=== PATIENT | female | born 1935 | race Caucasian/White ===

== ENCOUNTER 2018-03-07 12:39 | Inpatient (IN) | payer MEDICARE, BC ==
[2018-03-07] MEDS: Sodium Chloride 0.9% 1,000 ML IV SCH (15:37)
[2018-03-07] MEDS: Acetaminophen 325 MG Tab PO PRN (15:37)
[2018-03-07] MEDS: Enoxaparin 30 MG/0.3 ML Syringe SUBCUT SCH (15:39)
[2018-03-07] MEDS: Nystatin Crm 30 GM Tube TOP SCH ×2 (17:13→20:21)
[2018-03-07] MEDS: Clindamycin Phosphate in D5W 300 MG in Premix Bag 1 BAG IV SCH ×4 (17:14→21:48)
[2018-03-07] MEDS: Fluconazole 100 MG Tab PO SCH (17:16)
[2018-03-07] MEDS: Acetaminophen/HYDROcodone 325-5 MG Tab PO PRN ×2 (17:21→21:49)
[2018-03-07] MEDS: Simvastatin 40 MG Tab PO SCH ×2 (20:21→20:24)
[2018-03-07] MEDS: Latanoprost 0.005% Ophth Soln 2.5 ML Bottle EYEBOTH SCH (20:30)
[2018-03-08] MEDS: Sodium Chloride 0.9% 1,000 ML IV SCH ×2 (00:05→09:01)
[2018-03-08] MEDS: Clindamycin Phosphate in D5W 300 MG in Premix Bag 1 BAG IV SCH ×8 (04:40→22:07)
[2018-03-08] MEDS: Fluconazole 100 MG Tab PO SCH (08:07)
[2018-03-08] MEDS: Furosemide 40 MG Tab PO SCH (08:07)
[2018-03-08] MEDS: Beta-Carotene (Vitamin A) w/Vitamin C & E plus Minerals Tab PO SCH (08:07)
[2018-03-08] MEDS: Lisinopril 20 MG Tab PO SCH (08:07)
[2018-03-08] MEDS: Aspirin 325 MG Tab PO SCH (08:08)
[2018-03-08] MEDS: Nystatin Crm 30 GM Tube TOP SCH ×2 (08:08→19:25)
--- NOTE | 2018-03-08 09:10 | PCM.PN ---
- General Info Date of Service: 03/08/18 Admission Dx/Problem (Free Text): Cellulitis of LLE Functional Status: Reports: Pain Controlled, Tolerating Diet. Denies: Ambulating - Review of Systems General: Reports: Weakness, Fatigue, Malaise. Denies: Fever HEENT: Reports: No Symptoms Pulmonary: Denies: Shortness of Breath, Cough Cardiovascular: Reports: Edema. Denies: Chest Pain, Lightheadedness Gastrointestinal: Reports: Diarrhea (had diarrhea prior to admission, no stools since that time). Denies: Abdominal Pain, Nausea, Vomiting Genitourinary: Reports: No Symptoms Musculoskeletal: Reports: Leg Pain, Joint Pain Skin: Reports: Other (erythema noted to left leg) Neurological: Reports: No Symptoms - Patient Data Vitals - Most Recent: Last Vital Signs Temp 96.8 F 03/08/18 07:29 Pulse 74 03/08/18 07:29 Resp 18 03/08/18 07:29 BP 97/54 L 03/08/18 08:07 Pulse Ox 96 03/08/18 07:29 Weight - Most Recent: 261 lb 14.4 oz I&O - Last 24 Hours: Intake & Output 03/07/18 03/08/18 03/08/18 22:59 06:59 14:59 Intake Total 388 556 4606 Output Total 200 200 Balance 286 -100 1000 Lab Results Last 24 Hours: Laboratory Results - last 24 hr 03/07/18 03/07/18 03/07/18 Range/Units 13:54 13:54 17:15 WBC 14.1 H (5.0-10.0) 10^3/uL RBC 4.69 (4.00-5.50) 10^6/uL Hgb 13.6 (12.0-16.0) g/dL Hct 42.0 (37.0-47.0) % MCV 89.6 (82.0-94.0) fL MCH 29.0 (27.0-32.0) pg MCHC 32.4 L (33.0-38.0) g/dL RDW Coeff of [place] 14.4 (11.0-15.0) % Plt Count 122 L (150-400) 10^3/uL Neut % (Auto) 88.9 H (35-85) % Lymph % (Auto) 5.5 L (10-55) % [place] % (Auto) 5.6 (0-16) % Eos % (Auto) 0 (0-5) % Baso % (Auto) 0 (0-3) % Neut # (Auto) 12.52 H (1.80-7.00) 10^3/uL Lymph # (Auto) 0.77 L (1.00-4.80) 10^3/uL [place] # (Auto) 0.79 (0.00-0.80) 10^3/uL Eos # (Auto) 0.00 (0.00-0.45) 10^3/uL Baso # (Auto) 0.00 10^3/uL Sodium 138 (136-145) mEq/L Potassium 4.1 (3.5-5.0) mEq/L Chloride 103 (98-106) mEq/L Carbon Dioxide 24 (21-32) mmol/L BUN 27 H (7-18) mg/dL Creatinine 1.3 H (0.6-1.0) mg/dL Est Cr Clr Drug Dosing 29.80 mL/min Estimated GFR (MDRD) 39 L (>=60) mL/min Glucose 126 H D (75-99) mg/dL Calcium 9.4 (8.4-10.1) mg/dL Total Bilirubin 0.8 (0.0-1.0) mg/dL AST 30 (15-37) U/L ALT 21 (12-78) U/L Alkaline Phosphatase 76 (46-116) U/L C-Reactive Protein 29.6 H (0.2-0.8) mg/dL Total Protein 6.4 (6.4-8.2) g/dL Albumin 3.0 L (3.4-5.0) g/dL TSH, Ultra Sensitive 2.43 (0.36-5.60) uIU/mL Urine Color Dark yellow (YELLOW) Urine Appearance Slightly cloudy (CLEAR) Urine pH 5.5 (4.5-8.0) Ur Specific [place] 1.025 H (1.003-1.020) Urine Protein 100 H (NEGATIVE) mg/dL Urine Glucose (UA) Negative (NEGATIVE) mg/dL Urine Ketones 15 H (NEGATIVE) mg/dL Urine Occult Blood Small H (NEGATIVE) Urine Nitrite Negative (NEGATIVE) Urine Bilirubin Negative (NEGATIVE) Urine Urobilinogen 0.2 (0.2-1.0) EU/dL Ur Leukocyte Esterase Negative (NEGATIVE) Urine RBC 0-5 (0-5) /HPF Urine WBC 0-5 (0-5) /HPF Ur Squamous Epith Cells Few H (NOT SEEN) /HPF Amorphous Sediment Few H (NOT SEEN) /HPF Urine Bacteria Few H (NOT SEEN) /HPF Urine Mucus Few H (NOT SEEN) /HPF 03/08/18 03/08/18 03/08/18 Range/Units 05:11 07:00 08:09 WBC 9.8 (5.0-10.0) 10^3/uL RBC 3.93 L (4.00-5.50) 10^6/uL Hgb 11.3 L (12.0-16.0) g/dL Hct 35.8 L (37.0-47.0) % MCV 91.1 (82.0-94.0) fL MCH 28.8 (27.0-32.0) pg MCHC 31.6 L (33.0-38.0) g/dL RDW Coeff of [place] 14.4 (11.0-15.0) % Plt Count 106 L (150-400) 10^3/uL Neut % (Auto) 80.6 (35-85) % Lymph % (Auto) 9.6 L (10-55) % [place] % (Auto) 8.5 (0-16) % Eos % (Auto) 1.1 (0-5) % Baso % (Auto) 0.2 (0-3) % Neut # (Auto) 7.90 H (1.80-7.00) 10^3/uL Lymph # (Auto) 0.94 L (1.00-4.80) 10^3/uL [place] # (Auto) 0.83 H (0.00-0.80) 10^3/uL Eos # (Auto) 0.11 (0.00-0.45) 10^3/uL Baso # (Auto) 0.02 10^3/uL Sodium 139 (136-145) mEq/L Potassium 3.7 (3.5-5.0) mEq/L Chloride 107 H (98-106) mEq/L Carbon Dioxide 26 (21-32) mmol/L BUN 29 H (7-18) mg/dL Creatinine 1.2 H (0.6-1.0) mg/dL Est Cr Clr Drug Dosing 32.29 mL/min Estimated GFR (MDRD) 43 L (>=60) mL/min Glucose 115 H (75-99) mg/dL Calcium 8.3 L (8.4-10.1) mg/dL Total Bilirubin (0.0-1.0) mg/dL AST (15-37) U/L ALT (12-78) U/L Alkaline Phosphatase (46-116) U/L C-Reactive Protein 31.2 H (0.2-0.8) mg/dL Total Protein (6.4-8.2) g/dL Albumin (3.4-5.0) g/dL TSH, Ultra Sensitive (0.36-5.60) uIU/mL Urine Color (YELLOW) Urine Appearance (CLEAR) Urine pH (4.5-8.0) Ur Specific [place] (1.003-1.020) Urine Protein (NEGATIVE) mg/dL Urine Glucose (UA) (NEGATIVE) mg/dL Urine Ketones (NEGATIVE) mg/dL Urine Occult Blood (NEGATIVE) Urine Nitrite (NEGATIVE) Urine Bilirubin (NEGATIVE) Urine Urobilinogen (0.2-1.0) EU/dL Ur Leukocyte Esterase (NEGATIVE) Urine RBC (0-5) /HPF Urine WBC (0-5) /HPF Ur Squamous Epith Cells (NOT SEEN) /HPF Amorphous Sediment (NOT SEEN) /HPF Urine Bacteria (NOT SEEN) /HPF Urine Mucus (NOT SEEN) /HPF [place] Results Last 24 Hours: Microbiology 03/07/18 14:29 Anaerobic Blood Culture - Final Blood - Venous - Lab Draw 03/07/18 14:29 Anaerobic Blood Culture - Final Blood - Venous Med Orders - Current: Current Medications Acetaminophen (Tylenol) 650 mg PO Q4H PRN PRN Reason: Pain (Mild 1-3)/fever Last Admin: 03/07/18 15:37 Dose: 650 mg Hydrocodone Bitart/Acetaminophen ([place] 325-5 Mg) 2 tab PO Q4H PRN PRN Reason: Pain (moderate 4-6) Last Admin: 03/07/18 21:49 Dose: 2 tab Aspirin (Aspirin) 325 mg PO DAILY [facility] Last Admin: 03/08/18 08:08 Dose: 325 mg Enoxaparin Sodium (Lovenox) 30 mg SUBCUT DAILY@1600 [facility] Last Admin: 03/07/18 15:39 Dose: 30 mg Fluconazole (Diflucan) 100 mg PO DAILY [facility] Last Admin: 03/08/18 08:07 Dose: 100 mg Furosemide (Lasix) 40 mg PO DAILY [facility] Last Admin: 03/08/18 08:07 Dose: 40 mg Sodium Chloride (Normal Saline) 1,000 mls @ 30 mls/hr IV ASDIRECTED [facility] Last Admin: 03/08/18 09:01 Dose: 125 mls/hr Clindamycin Phosphate 300 mg/ (Premix) 50 mls @ 100 mls/hr IV 0400,1000,1600, 2200 [facility] Last Admin: 03/08/18 04:40 Dose: 100 mls/hr Latanoprost (Xalatan 0.005% Ophth Soln) 0 ml EYEBOTH QPM [facility] Last Admin: 03/07/18 20:30 Dose: 1 drop Lisinopril (Prinivil) 20 mg PO DAILY [facility] Last Admin: 03/08/18 08:07 Dose: 20 mg Multivitamins/Minerals (Prosight) 1 tab PO DAILY [facility] Last Admin: 03/08/18 08:07 Dose: 1 tab Nystatin (Nystatin Crm) 1 gm TOP BID [facility] Last Admin: 03/08/18 08:08 Dose: 1 applic Simvastatin (Zocor) 40 mg PO BEDTIME [facility] Last Admin: 03/07/18 20:24 Dose: Not Given - Exam General: Alert, Oriented HEENT: Mucous Membr. Moist/[place] Neck: Supple Lungs: Clear to Auscultation, Normal Respiratory Effort Cardiovascular: Regular Rate, Regular Rhythm GI/Abdominal Exam: Normal Bowel Sounds, Soft, Non-Tender Extremities: Pedal Edema, Increased Warmth, Redness (redness noted to LLE is improved per marking per staff yesterday. Patient states less tender. Is still warm to the touch. ) Skin: Warm Neurological: No New Focal Deficit - Problem List & Annotations (1) Cellulitis SNOMED Code(s): 582944461 Code(s): L03.90 - CELLULITIS, UNSPECIFIED Status: Acute Priority: High Current Visit: Yes Qualifiers: Site of cellulitis: extremity Site of cellulitis of extremity: lower extremity Laterality: left Qualified Code(s): L03.116 - Cellulitis of left lower limb (2) Dehydration SNOMED Code(s): 74826695 Code(s): E86.0 - DEHYDRATION Status: Acute Priority: High Current Visit : Yes (3) Hypotension SNOMED Code(s): 02876526 Code(s): I95.9 - HYPOTENSION, UNSPECIFIED Status: Acute Priority: High Current Visit: Yes (4) Yeast infection of the skin SNOMED Code(s): 38475296 Code(s): B37.2 - CANDIDIASIS OF SKIN AND NAIL Status: Acute Priority: High Current Visit: Yes - Problem List Review Problem List Initiated/Reviewed/Updated: Yes - Assessment Assessment:: Cellulitis of LLE Dehydration Hypotension Yeast Infection of the skin - Plan Plan:: Patient is feeling better today. Afebrile. Left lower extremity redness improved from yesterday. Still has discomfort, but improved. She does have difficulty ambulating due to long-term knee pain, worse over the last few weeks. Only one loose stool shortly after admission, none since. Does continue to have redness and moisture in the abdominal folds, under breasts but improved since admit per nursing staff. WBC is improved today, down to 9.8. CRP up to 31.2 today. Blood pressure 97/54 this am. Will stop telemetry, no changes. Decrease IV fluids to TKO. Continue Cleocin QID. PT. Repeat labs in am. Inappropriate for discharge.
[2018-03-08] MEDS: Acetaminophen/HYDROcodone 325-5 MG Tab PO PRN ×2 (13:16→22:15)
[2018-03-08] MEDS: Enoxaparin 30 MG/0.3 ML Syringe SUBCUT SCH (16:14)
[2018-03-08] MEDS: Simvastatin 40 MG Tab PO SCH (19:24)
[2018-03-08] MEDS: Latanoprost 0.005% Ophth Soln 2.5 ML Bottle EYEBOTH SCH (19:25)
[2018-03-09] MEDS: Clindamycin Phosphate in D5W 300 MG in Premix Bag 1 BAG IV SCH ×8 (03:38→21:42)
[2018-03-09] MEDS: Beta-Carotene (Vitamin A) w/Vitamin C & E plus Minerals Tab PO SCH (07:24)
[2018-03-09] MEDS: Aspirin 325 MG Tab PO SCH (07:25)
[2018-03-09] MEDS: Lisinopril 20 MG Tab PO SCH (07:29)
[2018-03-09] MEDS: Furosemide 40 MG Tab PO SCH (07:29)
[2018-03-09] MEDS: Fluconazole 100 MG Tab PO SCH (07:29)
[2018-03-09] MEDS: Nystatin Crm 30 GM Tube TOP SCH ×2 (07:29→20:09)
[2018-03-09] MEDS: Acetaminophen/HYDROcodone 325-5 MG Tab PO PRN ×2 (12:56→20:06)
[2018-03-09] MEDS: Enoxaparin 30 MG/0.3 ML Syringe SUBCUT SCH (15:20)
[2018-03-09] MEDS: Simvastatin 40 MG Tab PO SCH (20:06)
[2018-03-09] MEDS: Latanoprost 0.005% Ophth Soln 2.5 ML Bottle EYEBOTH SCH (20:09)
--- NOTE | 2018-03-09 21:34 | PCM.PN ---
- General Info Date of Service: 03/09/18 Admission Dx/Problem (Free Text): Cellulitis of LLE Functional Status: Reports: Tolerating Diet. Denies: Pain Controlled ( complains of pain with weight bearing), Ambulating - Review of Systems General: Reports: Weakness, Fatigue, Malaise. Denies: Fever HEENT: Reports: No Symptoms Pulmonary: Denies: Shortness of Breath, Cough Cardiovascular: Denies: Chest Pain, Edema, Lightheadedness Gastrointestinal: Denies: Abdominal Pain, Nausea, Vomiting Genitourinary: Reports: No Symptoms Musculoskeletal: Reports: Leg Pain, Joint Pain Skin: Reports: Other (redness to left leg) Neurological: Reports: No Symptoms - Patient Data Vitals - Most Recent: Last Vital Signs Temp 97.8 F 03/09/18 20:00 Pulse 78 03/09/18 20:00 Resp 18 03/09/18 20:00 BP 101/42 L 03/09/18 20:00 Pulse Ox 95 03/09/18 20:00 Weight - Most Recent: 261 lb I&O - Last 24 Hours: Intake & Output 03/09/18 03/09/18 03/09/18 06:59 14:59 22:59 Intake Total 433 20 7115 Output Total 250 550 Balance -50 50 550 Lab Results Last 24 Hours: Laboratory Results - last 24 hr 03/09/18 03/09/18 Range/Units 05:11 05:11 WBC 8.2 (5.0-10.0) 10^3/uL RBC 3.73 L (4.00-5.50) 10^6/uL Hgb 10.8 L (12.0-16.0) g/dL Hct 34.0 L (37.0-47.0) % MCV 91.2 (82.0-94.0) fL MCH 29.0 (27.0-32.0) pg MCHC 31.8 L (33.0-38.0) g/dL RDW Coeff of [place] Luis 14.3 (11.0-15.0) % Plt Count 113 L (150-400) 10^3/uL Neut % (Auto) 74.4 (35-85) % Lymph % (Auto) 12.0 (10-55) % [place] % (Auto) 11.0 (0-16) % Eos % (Auto) 2.4 (0-5) % Baso % (Auto) 0.2 (0-3) % Neut # (Auto) 6.09 (1.80-7.00) 10^3/uL Lymph # (Auto) 0.98 L (1.00-4.80) 10^3/uL [place] # (Auto) 0.90 H (0.00-0.80) 10^3/uL Eos # (Auto) 0.20 (0.00-0.45) 10^3/uL Baso # (Auto) 0.02 10^3/uL Sodium 137 (136-145) mEq/L Potassium 3.6 (3.5-5.0) mEq/L Chloride 105 (98-106) mEq/L Carbon Dioxide 26 (21-32) mmol/L BUN 29 H (7-18) mg/dL Creatinine 1.2 H (0.6-1.0) mg/dL Est Cr Clr Drug Dosing 32.29 mL/min Estimated GFR (MDRD) 43 L (>=60) mL/min Glucose 112 H (75-99) mg/dL Calcium 8.5 (8.4-10.1) mg/dL C-Reactive Protein 30.3 H (0.2-0.8) mg/dL [place]o Results Last 24 Hours: Microbiology 03/07/18 14:29 Aerobic Blood Culture - Preliminary Blood - Venous - Lab Draw NO GROWTH AFTER 2 DAYS Anaerobic Blood Culture - Final 03/07/18 14:29 Aerobic Blood Culture - Preliminary Blood - Venous NO GROWTH AFTER 2 DAYS Anaerobic Blood Culture - Final Med Orders - Current: Current Medications Acetaminophen (Tylenol) 650 mg PO Q4H PRN PRN Reason: Pain (Mild 1-3)/fever Last Admin: 03/07/18 15:37 Dose: 650 mg Hydrocodone Bitart/Acetaminophen ([place] 325-5 Mg) 2 tab PO Q4H PRN PRN Reason: Pain (moderate 4-6) Last Admin: 03/09/18 20:06 Dose: 2 tab Aspirin (Aspirin) 325 mg PO DAILY [facility] Last Admin: 03/09/18 07:25 Dose: 325 mg Enoxaparin Sodium (Lovenox) 30 mg SUBCUT DAILY@1600 [facility] Last Admin: 03/09/18 15:20 Dose: 30 mg Fluconazole (Diflucan) 100 mg PO DAILY [facility] Last Admin: 03/09/18 07:29 Dose: 100 mg Furosemide (Lasix) 40 mg PO DAILY [facility] Last Admin: 03/09/18 07:29 Dose: 40 mg Sodium Chloride (Normal Saline) 1,000 mls @ 30 mls/hr IV ASDIRECTED [facility] Last Admin: 03/08/18 09:01 Dose: 125 mls/hr Clindamycin Phosphate 300 mg/ (Premix) 50 mls @ 100 mls/hr IV 0400,1000,1600, 2200 [facility] Last Admin: 03/09/18 15:20 Dose: 100 mls/hr Latanoprost (Xalatan 0.005% Ophth Soln) 0 ml EYEBOTH QPM [facility] Last Admin: 03/09/18 20:09 Dose: 1 drop Lisinopril (Prinivil) 20 mg PO DAILY [facility] Last Admin: 03/09/18 07:29 Dose: Not Given Multivitamins/Minerals (Prosight) 1 tab PO DAILY [facility] Last Admin: 03/09/18 07:24 Dose: 1 tab Nystatin (Nystatin Crm) 1 gm TOP BID [facility] Last Admin: 03/09/18 20:09 Dose: 1 applic Simvastatin (Zocor) 40 mg PO BEDTIME [facility] Last Admin: 03/09/18 20:06 Dose: 40 mg - Exam General: Alert, Oriented HEENT: Mucous Membr. Moist/[place] Neck: Supple Lungs: Clear to Auscultation, Normal Respiratory Effort Cardiovascular: Regular Rate, Regular Rhythm GI/Abdominal Exam: Normal Bowel Sounds, Soft, Non-Tender Extremities: Limited Range of Motion, Increased Warmth, Redness (redness continues to improve to LLE) Skin: Warm, Dry Wound/Incisions: Erythema Improving Neurological: No New Focal Deficit - Problem List & Annotations (1) Cellulitis SNOMED Code(s): 446804293 Code(s): L03.90 - CELLULITIS, UNSPECIFIED Status: Acute Priority: High Current Visit: Yes Qualifiers: Site of cellulitis: extremity Site of cellulitis of extremity: lower extremity Laterality: left Qualified Code(s): L03.116 - Cellulitis of left lower limb (2) Dehydration SNOMED Code(s): 00332100 Code(s): E86.0 - DEHYDRATION Status: Acute Priority: High Current Visit : Yes (3) Hypotension SNOMED Code(s): 61501517 Code(s): I95.9 - HYPOTENSION, UNSPECIFIED Status: Acute Priority: High Current Visit: Yes (4) Yeast infection of the skin SNOMED Code(s): 58361715 Code(s): B37.2 - CANDIDIASIS OF SKIN AND NAIL Status: Acute Priority: High Current Visit: Yes - Problem List Review Problem List Initiated/Reviewed/Updated: Yes - My Orders Last 24 Hours: My Active Orders 03/10/18 05:11 BASIC METABOLIC PANEL,BMP [CHEM] AM C-REACTIVE PROTEIN [CHEM] AM CBC WITH AUTO DIFF [HEME] AM - Assessment Assessment:: Cellulitis of LLE Dehydration Hypotension Yeast Infection of the skin - Plan Plan:: Patient is feeling better today. Afebrile. Left lower extremity redness improved from yesterday. Still has discomfort, but improved. 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 Only one loose stool shortly after admission, none since. Does continue to have redness and moisture in the abdominal folds, under breasts but improved since admit per nursing staff. WBC is improved today, down to 9.8. CRP up to 31.2 today. Blood pressure 97/54 this am. Will stop telemetry, no changes. Decrease IV fluids to TKO. Continue Cleocin QID. PT. Repeat labs in am. Inappropriate for discharge. 03-09-2018 Patient continues to have knee pain, feels it is more related to her chronic knee OA as lower leg and foot are only mildly painful now. Does still have pain in her foot and knee with weight bearing. Redness per markings on leg continue to improve. Skin folds improving, less odor noted today. WBC 8.2 today, CRP remains high at 30.3. Blood cultures negative Continue with IV Cleocin, PT. Probable swing bed tomorrow due to pain, physical therapy.
[2018-03-09] MEDS: Sodium Chloride 0.9% 1,000 ML IV SCH (21:42)
[2018-03-10] MEDS: Clindamycin Phosphate in D5W 300 MG in Premix Bag 1 BAG IV SCH ×8 (03:50→21:36)
[2018-03-10] MEDS: Aspirin 325 MG Tab PO SCH (07:51)
[2018-03-10] MEDS: Lisinopril 20 MG Tab PO SCH (07:51)
[2018-03-10] MEDS: Beta-Carotene (Vitamin A) w/Vitamin C & E plus Minerals Tab PO SCH (07:52)
[2018-03-10] MEDS: Furosemide 40 MG Tab PO SCH (07:52)
[2018-03-10] MEDS: Fluconazole 100 MG Tab PO SCH (07:52)
[2018-03-10] MEDS: Nystatin Crm 30 GM Tube TOP SCH ×2 (07:53→21:41)
[2018-03-10] MEDS: Acetaminophen/HYDROcodone 325-5 MG Tab PO PRN ×2 (11:30→19:27)
[2018-03-10] MEDS: Enoxaparin 30 MG/0.3 ML Syringe SUBCUT SCH (16:12)
[2018-03-10] MEDS: Simvastatin 40 MG Tab PO SCH (19:27)
--- NOTE | 2018-03-10 19:54 | PCM.PN ---
- General Info Date of Service: 03/10/18 Admission Dx/Problem (Free Text): Cellulitis of LLE Functional Status: Reports: Pain Controlled, Tolerating Diet. Denies: Ambulating - Review of Systems General: Reports: Weakness, Malaise. Denies: Fever, Fatigue HEENT: Reports: No Symptoms Pulmonary: Denies: Shortness of Breath, Cough Cardiovascular: Denies: Chest Pain, Edema, Lightheadedness Gastrointestinal: Denies: Abdominal Pain, Nausea, Vomiting Genitourinary: Reports: No Symptoms Musculoskeletal: Reports: Leg Pain, Joint Pain Skin: Reports: Other (redness to leg) Neurological: Reports: No Symptoms - Patient Data Vitals - Most Recent: Last Vital Signs Temp 98.0 F 03/10/18 15:40 Pulse 71 03/10/18 15:40 Resp 18 03/10/18 15:40 BP 104/56 L 03/10/18 15:40 Pulse Ox 96 03/10/18 15:40 Weight - Most Recent: 262 lb 3.2 oz I&O - Last 24 Hours: Intake & Output 03/10/18 03/10/18 03/10/18 06:59 14:59 22:59 Intake Total 150 50 720 Output Total 200 550 Balance -50 50 170 Lab Results Last 24 Hours: Laboratory Results - last 24 hr 03/10/18 03/10/18 Range/Units 07:00 07:20 WBC 10.4 H (5.0-10.0) 10^3/uL RBC 4.01 (4.00-5.50) 10^6/uL Hgb 11.5 L (12.0-16.0) g/dL Hct 36.3 L (37.0-47.0) % MCV 90.5 (82.0-94.0) fL MCH 28.7 (27.0-32.0) pg MCHC 31.7 L (33.0-38.0) g/dL RDW Coeff of [place] 14.3 (11.0-15.0) % Plt Count 135 L (150-400) 10^3/uL Neut % (Auto) 70.6 (35-85) % Lymph % (Auto) 11.6 (10-55) % [place] % (Auto) 11.5 (0-16) % Eos % (Auto) 6.1 H (0-5) % Baso % (Auto) 0.2 (0-3) % Neut # (Auto) 7.34 H (1.80-7.00) 10^3/uL Lymph # (Auto) 1.21 (1.00-4.80) 10^3/uL [place] # (Auto) 1.20 H (0.00-0.80) 10^3/uL Eos # (Auto) 0.63 H (0.00-0.45) 10^3/uL Baso # (Auto) 0.02 10^3/uL Sodium 136 (136-145) mEq/L Potassium 4.2 (3.5-5.0) mEq/L Chloride 104 (98-106) mEq/L Carbon Dioxide 27 (21-32) mmol/L BUN 26 H (7-18) mg/dL Creatinine 1.1 H (0.6-1.0) mg/dL Est Cr Clr Drug Dosing 35.22 mL/min Estimated GFR (MDRD) 48 L (>=60) mL/min Glucose 112 H (75-99) mg/dL Calcium 8.7 (8.4-10.1) mg/dL C-Reactive Protein 31.6 H (0.2-0.8) mg/dL Angelo Results Last 24 Hours: Microbiology 03/07/18 14:29 Aerobic Blood Culture - Preliminary Blood - Venous - Lab Draw NO GROWTH AFTER 3 DAYS Anaerobic Blood Culture - Final 03/07/18 14:29 Aerobic Blood Culture - Preliminary Blood - Venous NO GROWTH AFTER 3 DAYS Anaerobic Blood Culture - Final Med Orders - Current: Current Medications Acetaminophen (Tylenol) 650 mg PO Q4H PRN PRN Reason: Pain (Mild 1-3)/fever Last Admin: 03/07/18 15:37 Dose: 650 mg Hydrocodone Bitart/Acetaminophen ([place] 325-5 Mg) 2 tab PO Q4H PRN PRN Reason: Pain (moderate 4-6) Last Admin: 03/10/18 19:27 Dose: 2 tab Aspirin (Aspirin) 325 mg PO DAILY [facility] Last Admin: 03/10/18 07:51 Dose: 325 mg Enoxaparin Sodium (Lovenox) 30 mg SUBCUT DAILY@1600 [facility] Last Admin: 03/10/18 16:12 Dose: 30 mg Fluconazole (Diflucan) 100 mg PO DAILY [facility] Last Admin: 03/10/18 07:52 Dose: 100 mg Furosemide (Lasix) 40 mg PO DAILY [facility] Last Admin: 03/10/18 07:52 Dose: 40 mg Clindamycin Phosphate 300 mg/ (Premix) 50 mls @ 100 mls/hr IV 0400,1000,1600, 2200 [facility] Last Admin: 03/10/18 16:12 Dose: 100 mls/hr Latanoprost (Xalatan 0.005% Ophth Soln) 0 ml EYEBOTH QPM [facility] Last Admin: 03/09/18 20:09 Dose: 1 drop Lisinopril (Prinivil) 20 mg PO DAILY [facility] Last Admin: 03/10/18 07:51 Dose: 20 mg Multivitamins/Minerals (Prosight) 1 tab PO DAILY [facility] Last Admin: 03/10/18 07:52 Dose: 1 tab Nystatin (Nystatin Crm) 1 gm TOP BID [facility] Last Admin: 03/10/18 07:53 Dose: 1 applic Simvastatin (Zocor) 40 mg PO BEDTIME [facility] Last Admin: 03/10/18 19:27 Dose: 40 mg Discontinued Medications Sodium Chloride (Normal Saline) 1,000 mls @ 30 mls/hr IV ASDIRECTED [facility] Last Admin: 03/09/18 21:42 Dose: 125 mls/hr - Exam General: Alert, Oriented HEENT: Mucous Membr. Moist/[place] Neck: Supple Lungs: Clear to Auscultation, Normal Respiratory Effort Cardiovascular: Regular Rate, Regular Rhythm GI/Abdominal Exam: Normal Bowel Sounds, Soft, Non-Tender Extremities: Increased Warmth (LLE remains red from midshin to foot. Tender to exam. ), Redness - Problem List & Annotations (1) Cellulitis SNOMED Code(s): 740830016 Code(s): L03.90 - CELLULITIS, UNSPECIFIED Status: Acute Priority: High Current Visit: Yes Qualifiers: Site of cellulitis: extremity Site of cellulitis of extremity: lower extremity Laterality: left Qualified Code(s): L03.116 - Cellulitis of left lower limb (2) Dehydration SNOMED Code(s): 93146707 Code(s): E86.0 - DEHYDRATION Status: Acute Priority: High Current Visit : Yes (3) Hypotension SNOMED Code(s): 96219075 Code(s): I95.9 - HYPOTENSION, UNSPECIFIED Status: Acute Priority: High Current Visit: Yes (4) Yeast infection of the skin SNOMED Code(s): 43981341 Code(s): B37.2 - CANDIDIASIS OF SKIN AND NAIL Status: Acute Priority: High Current Visit: Yes - Problem List Review Problem List Initiated/Reviewed/Updated: Yes - Assessment Assessment:: Cellulitis of LLE Dehydration Hypotension Yeast Infection of the skin - Plan Plan:: Patient is feeling better today. Afebrile. Left lower extremity redness improved from yesterday. Still has discomfort, but improved. 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 Only one loose stool shortly after admission, none since. Does continue to have redness and moisture in the abdominal folds, under breasts but improved since admit per nursing staff. WBC is improved today, down to 9.8. CRP up to 31.2 today. Blood pressure 97/54 this am. Will stop telemetry, no changes. Decrease IV fluids to TKO. Continue Cleocin QID. PT. Repeat labs in am. Inappropriate for discharge. 03-09-2018 Patient continues to have knee pain, feels it is more related to her chronic knee OA as lower leg and foot are only mildly painful now. Does still have pain in her foot and knee with weight bearing. Redness per markings on leg continue to improve. Skin folds improving, less odor noted today. WBC 8.2 today, CRP remains high at 30.3. Blood cultures negative Continue with IV Cleocin, PT. Probable swing bed tomorrow due to pain, physical therapy. 03-10-2018 Patient feeling better overall, still has knee and foot pain. Leg redness is slowly improving. Still noted from midshin to foot. Tender with exam. Has trouble with range of motion of leg due to ongoing knee pain. Skin folds improving. WBC stable. Sodium and potassium normal. CRP up to 31.6. Will continue with IV Cleocin. PT. Pain medications. Probable transfer to swing bed tomorrow. Will continue to follow CRP.
[2018-03-10] MEDS: Latanoprost 0.005% Ophth Soln 2.5 ML Bottle EYEBOTH SCH (21:40)
[2018-03-11] MEDS: Acetaminophen/HYDROcodone 325-5 MG Tab PO PRN ×3 (03:09→18:38)
[2018-03-11] MEDS: Clindamycin Phosphate in D5W 300 MG in Premix Bag 1 BAG IV SCH ×8 (03:09→21:47)
[2018-03-11] MEDS: Nystatin Crm 30 GM Tube TOP SCH ×2 (07:58→20:26)
[2018-03-11] MEDS: Beta-Carotene (Vitamin A) w/Vitamin C & E plus Minerals Tab PO SCH (07:59)
[2018-03-11] MEDS: Aspirin 325 MG Tab PO SCH (07:59)
[2018-03-11] MEDS: Fluconazole 100 MG Tab PO SCH (07:59)
[2018-03-11] MEDS: Furosemide 40 MG Tab PO SCH (07:59)
[2018-03-11] MEDS: Lisinopril 20 MG Tab PO SCH (07:59)
--- NOTE | 2018-03-11 15:10 | PCM.PN ---
- General Info Date of Service: 03/11/18 Admission Dx/Problem (Free Text): Cellulitis of LLE Functional Status: Reports: Tolerating Diet. Denies: Pain Controlled, Ambulating - Review of Systems General: Reports: Weakness, Fatigue, Malaise. Denies: Fever HEENT: Reports: No Symptoms Pulmonary: Denies: Shortness of Breath, Cough Cardiovascular: Denies: Chest Pain, Edema, Lightheadedness Gastrointestinal: Denies: Abdominal Pain, Nausea, Vomiting Genitourinary: Reports: No Symptoms Musculoskeletal: Reports: No Symptoms Skin: Reports: Other (left leg pain) Neurological: Reports: No Symptoms - Patient Data Vitals - Most Recent: Last Vital Signs Temp 97.2 F 03/11/18 11:41 Pulse 67 03/11/18 11:41 Resp 20 03/11/18 11:41 BP 94/37 L 03/11/18 11:41 Pulse Ox 94 L 03/11/18 11:41 Weight - Most Recent: 262 lb 3.2 oz I&O - Last 24 Hours: Intake & Output 03/11/18 03/11/18 03/11/18 06:59 14:59 22:59 Intake Total 400 465 Output Total 100 700 Balance 300 -235 Lab Results Last 24 Hours: Laboratory Results - last 24 hr 03/11/18 Range/Units 08:41 Sodium 138 (136-145) mEq/L Potassium 4.0 (3.5-5.0) mEq/L Chloride 104 (98-106) mEq/L Carbon Dioxide 26 (21-32) mmol/L BUN 24 H (7-18) mg/dL Creatinine 1.1 H (0.6-1.0) mg/dL Est Cr Clr Drug Dosing 35.22 mL/min Estimated GFR (MDRD) 48 L (>=60) mL/min Glucose 105 H (75-99) mg/dL Calcium 8.9 (8.4-10.1) mg/dL C-Reactive Protein 33.9 H (0.2-0.8) mg/dL Angelo Results Last 24 Hours: Microbiology 03/07/18 14:29 Aerobic Blood Culture - Preliminary Blood - Venous - Lab Draw NO GROWTH AFTER 4 DAYS Anaerobic Blood Culture - Final 03/07/18 14:29 Aerobic Blood Culture - Preliminary Blood - Venous NO GROWTH AFTER 4 DAYS Anaerobic Blood Culture - Final Med Orders - Current: Current Medications Acetaminophen (Tylenol) 650 mg PO Q4H PRN PRN Reason: Pain (Mild 1-3)/fever Last Admin: 03/07/18 15:37 Dose: 650 mg Hydrocodone Bitart/Acetaminophen ([place] 325-5 Mg) 2 tab PO Q4H PRN PRN Reason: Pain (moderate 4-6) Last Admin: 03/11/18 07:59 Dose: 2 tab Aspirin (Aspirin) 325 mg PO DAILY [facility] Last Admin: 03/11/18 07:59 Dose: 325 mg Enoxaparin Sodium (Lovenox) 30 mg SUBCUT DAILY@1600 [facility] Last Admin: 03/10/18 16:12 Dose: 30 mg Fluconazole (Diflucan) 100 mg PO DAILY [facility] Last Admin: 03/11/18 07:59 Dose: 100 mg Furosemide (Lasix) 40 mg PO DAILY [facility] Last Admin: 03/11/18 07:59 Dose: 40 mg Clindamycin Phosphate 300 mg/ (Premix) 50 mls @ 100 mls/hr IV 0400,1000,1600, 2200 [facility] Last Admin: 03/11/18 11:36 Dose: 100 mls/hr Vancomycin HCl 1.25 gm/ Sodium (Chloride) 250 mls @ 167 mls/hr IV Q24H [facility] Last Admin: 03/11/18 09:59 Dose: 167 mls/hr Latanoprost (Xalatan 0.005% Ophth Soln) 0 ml EYEBOTH QPM [facility] Last Admin: 03/10/18 21:40 Dose: 1 drop Lisinopril (Prinivil) 20 mg PO DAILY [facility] Last Admin: 03/11/18 07:59 Dose: 20 mg Multivitamins/Minerals (Prosight) 1 tab PO DAILY [facility] Last Admin: 03/11/18 07:59 Dose: 1 tab Nystatin (Nystatin Crm) 1 gm TOP BID [facility] Last Admin: 03/11/18 07:58 Dose: 1 applic Simvastatin (Zocor) 40 mg PO BEDTIME [facility] Last Admin: 03/10/18 19:27 Dose: 40 mg Vancomycin HCl (Pharmacy To Dose - Vancomycin) 1 dose .XX ASDIRECTED [facility] Discontinued Medications Sodium Chloride (Normal Saline) 1,000 mls @ 30 mls/hr IV ASDIRECTED [facility] Last Admin: 03/09/18 21:42 Dose: 125 mls/hr - Exam General: Alert, Oriented HEENT: Mucous Membr. Moist/[place] Neck: Supple Lungs: Clear to Auscultation, Normal Respiratory Effort Cardiovascular: Regular Rate, Regular Rhythm GI/Abdominal Exam: Normal Bowel Sounds, Soft, Non-Tender Extremities: Normal Inspection, Leg Pain, Limited Range of Motion, Increased Warmth, Redness Skin: Other (redness noted to left leg, warm to the touch. Redness seems to be unchanged at this point since day 2) Neurological: No New Focal Deficit - Problem List & Annotations (1) Cellulitis SNOMED Code(s): 443237107 Code(s): L03.90 - CELLULITIS, UNSPECIFIED Status: Acute Priority: High Current Visit: Yes Qualifiers: Site of cellulitis: extremity Site of cellulitis of extremity: lower extremity Laterality: left Qualified Code(s): L03.116 - Cellulitis of left lower limb (2) Dehydration SNOMED Code(s): 65953445 Code(s): E86.0 - DEHYDRATION Status: Acute Priority: High Current Visit : Yes (3) Hypotension SNOMED Code(s): 88696243 Code(s): I95.9 - HYPOTENSION, UNSPECIFIED Status: Acute Priority: High Current Visit: Yes (4) Yeast infection of the skin SNOMED Code(s): 70186820 Code(s): B37.2 - CANDIDIASIS OF SKIN AND NAIL Status: Acute Priority: High Current Visit: Yes - Problem List Review Problem List Initiated/Reviewed/Updated: Yes - My Orders Last 24 Hours: My Active Orders 03/11/18 08:23 VL Duplex Lwr Ext Veins Ltd Lt [US] Routine 03/11/18 08:30 Vancomycin Pharmacy to Dose [Pharmacy to Dose - Vancomycin] 1 dose .XX ASDIRECTED 03/11/18 08:31 Consult to Physical Therapy [PT Evaluation and Treatment] [CONS] Routine 03/11/18 09:00 Vancomycin 1.25 gm Sodium Chloride 0.9% [Normal Saline] 250 ml IV Q24H - Assessment Assessment:: Cellulitis of LLE Dehydration Hypotension Yeast Infection of the skin - Plan Plan:: Patient is feeling better today. Afebrile. Left lower extremity redness improved from yesterday. Still has discomfort, but improved. She does have difficulty ambulating due to [facility] knee pain, worse over the last few weeks. Only one loose stool shortly after admission, none since. Does continue to have redness and moisture in the abdominal folds, under breasts but improved since admit per nursing staff. WBC is improved today, down to 9.8. CRP up to 31.2 today. Blood pressure 97/54 this am. Will stop telemetry, no changes. Decrease IV fluids to TKO. Continue Cleocin QID. PT. Repeat labs in am. Inappropriate for discharge. 03-09-2018 Patient continues to have knee pain, feels it is more related to her chronic knee OA as lower leg and foot are only mildly painful now. Does still have pain in her foot and knee with weight bearing. Redness per markings on leg continue to improve. Skin folds improving, less odor noted today. WBC 8.2 today, CRP remains high at 30.3. Blood cultures negative Continue with IV Cleocin, PT. Probable swing bed tomorrow due to pain, physical therapy. 03-10-2018 Patient feeling better overall, still has knee and foot pain. Leg redness is slowly improving. Still noted from midshin to foot. Tender with exam. Has trouble with range of motion of leg due to ongoing knee pain. Skin folds improving. WBC stable. Sodium and potassium normal. CRP up to 31.6. Will continue with IV Cleocin. PT. Pain medications. Probable transfer to swing bed tomorrow. Will continue to follow CRP. 03-11-2018 Patient continues to have pain in her leg. Redness and swelling of leg seems to not be improving from day 2, more at a stable state. Still very warm to the touch. CRP continues to increase to 33.9 today. Has most of her pain in her knee. She is afebrile. Does not transfer well due to discomfort. Blood cultures were negative. Will start IV Vancomycin today. Obtain a venous ultrasound of her LLE. Physical therapy consult. Inappropriate for discharge due to status. Possible swing bed tomorrow.
[2018-03-11] MEDS: Enoxaparin 30 MG/0.3 ML Syringe SUBCUT SCH (16:02)
[2018-03-11] MEDS: Latanoprost 0.005% Ophth Soln 2.5 ML Bottle EYEBOTH SCH (20:25)
[2018-03-11] MEDS: Simvastatin 40 MG Tab PO SCH (20:26)
[2018-03-11] MEDS: Acetaminophen 325 MG Tab PO PRN (20:28)
[2018-03-12] MEDS: Clindamycin Phosphate in D5W 300 MG in Premix Bag 1 BAG IV SCH ×8 (04:00→21:47)
[2018-03-12] MEDS: Aspirin 325 MG Tab PO SCH (07:34)
[2018-03-12] MEDS: Furosemide 40 MG Tab PO SCH (07:34)
[2018-03-12] MEDS: Beta-Carotene (Vitamin A) w/Vitamin C & E plus Minerals Tab PO SCH (07:34)
[2018-03-12] MEDS: Lisinopril 20 MG Tab PO SCH (07:34)
[2018-03-12] MEDS: Fluconazole 100 MG Tab PO SCH (07:35)
[2018-03-12] MEDS: Acetaminophen/HYDROcodone 325-5 MG Tab PO PRN ×4 (07:35→22:11)
[2018-03-12] MEDS: Nystatin Crm 30 GM Tube TOP SCH ×2 (07:36→19:36)
[2018-03-12] MEDS: cefTRIAXone 1 GM Vial IVPUSH SCH (11:23)
[2018-03-12] MEDS: Enoxaparin 30 MG/0.3 ML Syringe SUBCUT SCH (16:28)
--- NOTE | 2018-03-12 17:19 | PCM.PN ---
- General Info Date of Service: 03/13/18 Functional Status: Reports: Tolerating Diet, Other (Increased pain LLE. ) - Review of Systems General: Reports: Fever, Weakness (generalized weakness), Malaise (generally not feeling well), Chills HEENT: Reports: No Symptoms Pulmonary: Reports: No Symptoms Cardiovascular: Reports: No Symptoms Gastrointestinal: Reports: No Symptoms Genitourinary: Reports: No Symptoms Musculoskeletal: Reports: No Symptoms Skin: Reports: Other (LLE redness, swelling, pain, tenderness. ) Neurological: Reports: No Symptoms Psychiatric: Reports: No Symptoms - Patient Data Vitals - Most Recent: Last Vital Signs Temp 99.7 F 03/12/18 16:00 Pulse 81 03/12/18 16:00 Resp 18 03/12/18 16:00 BP 123/56 L 03/12/18 16:00 Pulse Ox 100 03/12/18 16:00 Weight - Most Recent: 262 lb 3.2 oz I&O - Last 24 Hours: Intake & Output 03/12/18 03/12/18 03/12/18 06:59 14:59 22:59 Intake Total 400 50 Output Total 300 Balance 100 50 Lab Results Last 24 Hours: Laboratory Results - last 24 hr 03/12/18 03/12/18 03/12/18 Range/Units 06:50 09:05 09:05 WBC 8.4 (5.0-10.0) 10^3/uL RBC 3.66 L (4.00-5.50) 10^6/uL Hgb 10.5 L (12.0-16.0) g/dL Hct 33.1 L (37.0-47.0) % MCV 90.4 (82.0-94.0) fL MCH 28.7 (27.0-32.0) pg MCHC 31.7 L (33.0-38.0) g/dL RDW Coeff of Jose Luis 14.5 (11.0-15.0) % Plt Count 216 (150-400) 10^3/uL Add Manual Diff Yes Neutrophils % (Manual) 63 (35-85) % Band Neutrophils % 15 H (0-5) % Lymphocytes % (Manual) 12 L (21-55) % Monocytes % (Manual) 8 (2-12) % Eosinophils % (Manual) 2 (0-5) % Sodium 138 (136-145) mEq/L Potassium 4.0 (3.5-5.0) mEq/L Chloride 103 (98-106) mEq/L Carbon Dioxide 26 (21-32) mmol/L BUN 22 H (7-18) mg/dL Creatinine 1.1 H (0.6-1.0) mg/dL Est Cr Clr Drug Dosing 35.22 mL/min Estimated GFR (MDRD) 48 L (>=60) mL/min Glucose 105 H (75-99) mg/dL Lactic Acid (0.4-2.0) mmol/L Calcium 8.6 (8.4-10.1) mg/dL Total Bilirubin 0.7 (0.0-1.0) mg/dL AST 26 (15-37) U/L ALT 24 (12-78) U/L Alkaline Phosphatase 139 H (46-116) U/L C-Reactive Protein 33.4 H (0.2-0.8) mg/dL Total Protein 5.8 L (6.4-8.2) g/dL Albumin 1.9 L (3.4-5.0) g/dL 03/12/18 Range/Units 09:05 WBC (5.0-10.0) 10^3/uL RBC (4.00-5.50) 10^6/uL Hgb (12.0-16.0) g/dL Hct (37.0-47.0) % MCV (82.0-94.0) fL MCH (27.0-32.0) pg MCHC (33.0-38.0) g/dL RDW Coeff of Jose Luis (11.0-15.0) % Plt Count (150-400) 10^3/uL Add Manual Diff Neutrophils % (Manual) (35-85) % Band Neutrophils % (0-5) % Lymphocytes % (Manual) (21-55) % Monocytes % (Manual) (2-12) % Eosinophils % (Manual) (0-5) % Sodium (136-145) mEq/L Potassium (3.5-5.0) mEq/L Chloride (98-106) mEq/L Carbon Dioxide (21-32) mmol/L BUN (7-18) mg/dL Creatinine (0.6-1.0) mg/dL Est Cr Clr Drug Dosing mL/min Estimated GFR (MDRD) (>=60) mL/min Glucose (75-99) mg/dL Lactic Acid 1.0 (0.4-2.0) mmol/L Calcium (8.4-10.1) mg/dL Total Bilirubin (0.0-1.0) mg/dL AST (15-37) U/L ALT (12-78) U/L Alkaline Phosphatase (46-116) U/L C-Reactive Protein (0.2-0.8) mg/dL Total Protein (6.4-8.2) g/dL Albumin (3.4-5.0) g/dL Angelo Results Last 24 Hours: Microbiology 03/07/18 14:29 Aerobic Blood Culture - Final Blood - Venous - Lab Draw NO GROWTH AFTER 5 DAYS Anaerobic Blood Culture - Final 03/07/18 14:29 Aerobic Blood Culture - Final Blood - Venous NO GROWTH AFTER 5 DAYS Anaerobic Blood Culture - Final Med Orders - Current: Current Medications Acetaminophen (Tylenol) 650 mg PO Q4H PRN PRN Reason: Pain (Mild 1-3)/fever Last Admin: 03/11/18 20:28 Dose: 650 mg Hydrocodone Bitart/Acetaminophen ([place] 325-5 Mg) 2 tab PO Q4H PRN PRN Reason: Pain (moderate 4-6) Last Admin: 03/12/18 16:34 Dose: 2 tab Aspirin (Aspirin) 325 mg PO DAILY [facility] Last Admin: 03/12/18 07:34 Dose: 325 mg Ceftriaxone Sodium (Rocephin) 1 gm IVPUSH Q24H [facility] Last Admin: 03/12/18 11:23 Dose: 1 gm Enoxaparin Sodium (Lovenox) 30 mg SUBCUT DAILY@1600 [facility] Last Admin: 03/12/18 16:28 Dose: 30 mg Fluconazole (Diflucan) 100 mg PO DAILY [facility] Last Admin: 03/12/18 07:35 Dose: 100 mg Furosemide (Lasix) 40 mg PO DAILY [facility] Last Admin: 03/12/18 07:34 Dose: 40 mg Clindamycin Phosphate 300 mg/ (Premix) 50 mls @ 100 mls/hr IV 0400,1000,1600, 2200 [facility] Last Admin: 03/12/18 16:27 Dose: 100 mls/hr Vancomycin HCl 1.25 gm/ Sodium (Chloride) 250 mls @ 167 mls/hr IV Q24H [facility] Last Admin: 03/12/18 09:30 Dose: 167 mls/hr Latanoprost (Xalatan 0.005% Ophth Soln) 0 ml EYEBOTH QPM [facility] Last Admin: 03/11/18 20:25 Dose: 1 drop Lisinopril (Prinivil) 20 mg PO DAILY [facility] Last Admin: 03/12/18 07:34 Dose: 20 mg Multivitamins/Minerals (Prosight) 1 tab PO DAILY [facility] Last Admin: 03/12/18 07:34 Dose: 1 tab Nystatin (Nystatin Crm) 1 gm TOP BID [facility] Last Admin: 03/12/18 07:36 Dose: 1 applic Simvastatin (Zocor) 40 mg PO BEDTIME [facility] Last Admin: 03/11/18 20:26 Dose: 40 mg Vancomycin HCl (Pharmacy To Dose - Vancomycin) 1 dose .XX ASDIRECTED [facility] Discontinued Medications Sodium Chloride (Normal Saline) 1,000 mls @ 30 mls/hr IV ASDIRECTED [facility] Last Admin: 03/09/18 21:42 Dose: 125 mls/hr - Exam General: Alert, Oriented, Cooperative Neck: Supple Lungs: Clear to Auscultation, Normal Respiratory Effort Cardiovascular: Regular Rate, Regular Rhythm, No Murmurs GI/Abdominal Exam: Soft, Non-Tender Back Exam: Normal Inspection, Full Range of Motion Extremities: Normal Capillary Refill, Leg Pain (LLE severe. ), Limited Range of Motion (due to pain LLE), Increased Warmth (LLE toes to just below left knee. ) , Redness (LLE toes to just below left knee. Worsening. Has moved more up the leg outside of the line from yesterday. ) Peripheral Pulses: 2+: Femoral (L), Popliteal (L), Popliteal (R), Posterior Tibial (L), Posterior Tibial (R), Dorsalis Pedis (L), Dorsalis Pedis (R) Skin: Warm, Dry, Intact Psy/Mental Status: Alert, Normal Affect, Normal Mood - Problem List Review Problem List Initiated/Reviewed/Updated: Yes - My Orders Last 24 Hours: My Active Orders 03/12/18 10:28 Lower Leg w Cont Lt [CT] Stat 03/12/18 10:29 LYME, WESTERN BLOT, SERUM [REF] Stat 03/12/18 10:30 cefTRIAXone [Rocephin] 1 gm IVPUSH Q24H - Assessment Assessment:: Cellulitis of LLE Dehydration Hypotension Yeast Infection of the skin - Plan Plan:: Patient is feeling better today. Afebrile. Left lower extremity redness improved from yesterday. Still has discomfort, but improved. She does have difficulty ambulating due to [employer] knee pain, worse over the last few weeks. Only one loose stool shortly after admission, none since. Does continue to have redness and moisture in the abdominal folds, under breasts but improved since admit per nursing staff. WBC is improved today, down to 9.8. CRP up to 31.2 today. Blood pressure 97/54 this am. Will stop telemetry, no changes. Decrease IV fluids to TKO. Continue Cleocin QID. PT. Repeat labs in am. Inappropriate for discharge. 03-09-2018 Patient continues to have knee pain, feels it is more related to her chronic knee OA as lower leg and foot are only mildly painful now. Does still have pain in her foot and knee with weight bearing. Redness per markings on leg continue to improve. Skin folds improving, less odor noted today. WBC 8.2 today, CRP remains high at 30.3. Blood cultures negative Continue with IV Cleocin, PT. Probable swing bed tomorrow due to pain, physical therapy. 03-10-2018 Patient feeling better overall, still has knee and foot pain. Leg redness is slowly improving. Still noted from midshin to foot. Tender with exam. Has trouble with range of motion of leg due to ongoing knee pain. Skin folds improving. WBC stable. Sodium and potassium normal. CRP up to 31.6. Will continue with IV Cleocin. PT. Pain medications. Probable transfer to swing bed tomorrow. Will continue to follow CRP. 03-11-2018 Patient continues to have pain in her leg. Redness and swelling of leg seems to not be improving from day 2, more at a stable state. Still very warm to the touch. CRP continues to increase to 33.9 today. Has most of her pain in her knee. She is afebrile. Does not transfer well due to discomfort. Blood cultures were negative. Will start IV Vancomycin today. Obtain a venous ultrasound of her LLE. Physical therapy consult. Inappropriate for discharge due to status. Possible swing bed tomorrow. 03/12/18 This patient was admitted on Wednesday for cellulitis of the LLE. The patient has been getting Clindamycin IV. The leg worsened and was started also on Vancomycin yesterday. The patient today has fever. She has been getting Tylenol. The patient LLE redness has increased from the line drawn yesterday. The redness extends from the toes to just below the left knee. The patient today reports that she does not feel that well. She reports that the pain to the LLE has increased. I had patient labs drawn today. The CRP remains elevated. Today she has bands in her cbc. This patient will not go swing today. She has had a change in her status by continued fever, worsening of the leg, and now bands. I will CT the leg with contrast looking for any underlying abscesses verses cellulitis. The patient also reports she is concerned this may have started with a tick bite. She reports she has hx of having tick bites this year. She is unaware if this was caused by a tick bite. The patient reports she would like to stay in [place] at this time. I spoke with hospitalist at [facility]. She reports that the only thing she would change at this time is adding possible coverage for tick born illnesses such as Rocephin. She reports she would accept the patient if she changed her mind about transfer, but treatment would not change at this time. Especially with the ct showing cellulitis at this time. If the patient worsens, will again discuss with the patient a transfer. The patient will remain acute, as she is still ill and condition is worsening.
[2018-03-12] MEDS: Simvastatin 40 MG Tab PO SCH (19:35)
[2018-03-12] MEDS: Latanoprost 0.005% Ophth Soln 2.5 ML Bottle EYEBOTH SCH (19:36)
[2018-03-13] MEDS: Clindamycin Phosphate in D5W 300 MG in Premix Bag 1 BAG IV SCH ×4 (03:07→10:11)
[2018-03-13] MEDS: Nystatin Crm 30 GM Tube TOP SCH (08:21)
[2018-03-13] MEDS: Lisinopril 20 MG Tab PO SCH (08:22)
[2018-03-13] MEDS: Fluconazole 100 MG Tab PO SCH (08:22)
[2018-03-13] MEDS: Aspirin 325 MG Tab PO SCH (08:22)
[2018-03-13] MEDS: Beta-Carotene (Vitamin A) w/Vitamin C & E plus Minerals Tab PO SCH (08:22)
[2018-03-13] MEDS: Acetaminophen/HYDROcodone 325-5 MG Tab PO PRN ×2 (08:22→11:38)
[2018-03-13] MEDS: Furosemide 40 MG Tab PO SCH (08:22)
[2018-03-13] MEDS ORDERED: Furosemide 40 MG/4 ML VIAL IVPUSH ONE (09:33)
--- NOTE | 2018-03-13 09:47 | PCM.DCSUM1 ---
Discharge Summary - Hospital Course HPI Initial Comments: Plan:: Patient is feeling better today. Afebrile. Left lower extremity redness improved from yesterday. Still has discomfort, but improved. She does have difficulty ambulating due to senior living knee pain, worse over the last few weeks. Only one loose stool shortly after admission, none since. Does continue to have redness and moisture in the abdominal folds, under breasts but improved since admit per nursing staff. WBC is improved today, down to 9.8. CRP up to 31.2 today. Blood pressure 97/54 this am. Will stop telemetry, no changes. Decrease IV fluids to TKO. Continue Cleocin QID. PT. Repeat labs in am. Inappropriate for discharge. 03-09-2018 Patient continues to have knee pain, feels it is more related to her chronic knee OA as lower leg and foot are only mildly painful now. Does still have pain in her foot and knee with weight bearing. Redness per markings on leg continue to improve. Skin folds improving, less odor noted today. WBC 8.2 today, CRP remains high at 30.3. Blood cultures negative Continue with IV Cleocin, PT. Probable swing bed tomorrow due to pain, physical therapy. 03-10-2018 Patient feeling better overall, still has knee and foot pain. Leg redness is slowly improving. Still noted from midshin to foot. Tender with exam. Has trouble with range of motion of leg due to ongoing knee pain. Skin folds improving. WBC stable. Sodium and potassium normal. CRP up to 31.6. Will continue with IV Cleocin. PT. Pain medications. Probable transfer to swing bed tomorrow. Will continue to follow CRP. 03-11-2018 Patient continues to have pain in her leg. Redness and swelling of leg seems to not be improving from day 2, more at a stable state. Still very warm to the touch. CRP continues to increase to 33.9 today. Has most of her pain in her knee. She is afebrile. Does not transfer well due to discomfort. Blood cultures were negative. Will start IV Vancomycin today. Obtain a venous ultrasound of her LLE. Physical therapy consult. Inappropriate for discharge due to status. Possible swing bed tomorrow. 03/12/18 This patient was admitted on Wednesday for cellulitis of the LLE. The patient has been getting Clindamycin IV. The leg worsened and was started also on Vancomycin yesterday. The patient today has fever. She has been getting Tylenol. The patient LLE redness has increased from the line drawn yesterday. The redness extends from the toes to just below the left knee. The patient today reports that she does not feel that well. She reports that the pain to the LLE has increased. I had patient labs drawn today. The CRP remains elevated. Today she has bands in her cbc. This patient will not go swing today. She has had a change in her status by continued fever, worsening of the leg, and now bands. I will CT the leg with contrast looking for any underlying abscesses verses cellulitis. The patient also reports she is concerned this may have started with a tick bite. She reports she has hx of having tick bites this year. She is unaware if this was caused by a tick bite. The patient reports she would like to stay in [place] at this time. I spoke with hospitalist at [facility]. She reports that the only thing she would change at this time is adding possible coverage for tick born illnesses such as Rocephin. She reports she would accept the patient if she changed her mind about transfer, but treatment would not change at this time. Especially with the ct showing cellulitis at this time. If the patient worsens, will again discuss with the patient a transfer. The patient will remain acute, as she is still ill and condition is worsening. 03/13/18 This patient was admitted on Wednesday for cellulitis of the LLE. The patient has been getting Clindamycin IV. The leg worsened and was started also on Vancomycin Wednesday. The patient today has fever. She has been getting Tylenol. The patient LLE redness has increased from the line drawn yesterday. The redness extends from the toes to now involving the distal part of the left knee. The patient today reports that she does not feel that well. She reports that the pain to the LLE has increased. She reports that she is feeling worse than yesterday. I had patient labs drawn today. The CRP remains elevated and is worsening each day. Yesterday she has bands in her cbc. This patient will not go swing today. She has had a change in her status by continued fever, worsening of the leg, and now bands. CT of the LLE showed cellulitis. The patient also reports she is concerned this may have started with a tick bite. She reports she has hx of having tick bites this year. She reports her removed a tick over a week ago from the left leg. She is unaware if this was caused by a tick bite. I spoke with hospitalist at [facility]. He reports that the edema could be also caused from fluid overload, will give lasix. He reports to continue abx. Add gabby wraps around the legs too.The patient generally looks ill on exam. Discussed with her transferring to [place]. Today, she said she would like to be transferred. Dr. Seay the hospitalist has accepted the patient, will transfer. - Discharge Data Discharge Date: 03/13/18 Discharge Disposition: DC/Tfer to Acute Hospital 02 Condition: Poor - Patient Summary/Data Consults: Consultations 03/11/18 08:31 Consult to Physical Therapy [PT Evaluation and Treatment] [CONS] Routine - Discharge Plan Home Medications: Home Meds Aspirin 325 mg PO DAILY 03/07/18 [History] Bimatoprost [LUMIGAN 0.01% Ophth Soln] 1 drop EYEBOTH QPM 03/07/18 [History] Cholecalciferol (Vitamin D3) [Vitamin D3] 5,000 unit PO DAILY 03/07/18 [History] Furosemide 40 mg PO DAILY 03/07/18 [History] Lisinopril 20 mg PO DAILY 03/07/18 [History] Simvastatin [Zocor] 40 mg PO BEDTIME 03/07/18 [History] Vit A/C/E AC/Znox/Cupric Oxide [Eye Vitamin-Minerals Tablet] 1 each PO DAILY [History] Patient Handouts: Cellulitis, Adult - Discharge Summary/Plan Comment DC Time >30 min.: No Discharge Summary/Plan Comment: The risks of staying in [place] is , worsening of condition, worsening of infection, not seeing infectious disease, MRI not here if needed. The risks of transfer are MVC, worsening of condition, worsening of infection. The benefits of staying in [place] is close to home. The benefits of transfer to [facility] is infectious disease, MRI if needed, Interventional Radiology if needed, higher level of care. - General Info Date of Service: 03/13/18 Functional Status: Reports: Other (Decreased apetite, pain 10/10 LLE. ) - Review of Systems General: Reports: Fever, Weakness (generally), Malaise (generally feeling much worse today. ) HEENT: Reports: No Symptoms Pulmonary: Reports: No Symptoms Cardiovascular: Reports: No Symptoms Gastrointestinal: Reports: No Symptoms Genitourinary: Reports: No Symptoms Musculoskeletal: Reports: Leg Pain (LLE) Skin: Reports: Other (Redness, heat, swelling LLE. Toes to the now the knee) Neurological: Reports: No Symptoms Psychiatric: Reports: No Symptoms - Patient Data Vitals - Most Recent: Last Vital Signs Temp 99.9 F 03/13/18 07:35 Pulse 79 03/13/18 07:35 Resp 18 03/13/18 07:35 BP 131/57 L 03/13/18 08:22 Pulse Ox 96 03/13/18 07:35 Weight - Most Recent: 262 lb 3.2 oz I&O - Last 24 hours: Intake & Output 03/12/18 03/13/18 03/13/18 22:59 06:59 14:59 Intake Total 1176 200 Output Total 1200 200 Balance -24 0 Lab Results - Last 24 hrs: Laboratory Results - last 24 hr 03/13/18 03/13/18 03/13/18 Range/Units 07:00 07:00 07:00 WBC 8.1 (5.0-10.0) 10^3/uL RBC 3.75 L (4.00-5.50) 10^6/uL Hgb 10.8 L (12.0-16.0) g/dL Hct 34.0 L (37.0-47.0) % MCV 90.7 (82.0-94.0) fL MCH 28.8 (27.0-32.0) pg MCHC 31.8 L (33.0-38.0) g/dL RDW Coeff of Jose Luis 14.6 (11.0-15.0) % Plt Count 264 (150-400) 10^3/uL Neut % (Auto) 71.9 (35-85) % Lymph % (Auto) 10.8 (10-55) % Hill % (Auto) 11.9 (0-16) % Eos % (Auto) 5.0 (0-5) % Baso % (Auto) 0.4 (0-3) % Neut # (Auto) 5.79 (1.80-7.00) 10^3/uL Lymph # (Auto) 0.87 L (1.00-4.80) 10^3/uL Hill # (Auto) 0.96 H (0.00-0.80) 10^3/uL Eos # (Auto) 0.40 (0.00-0.45) 10^3/uL Baso # (Auto) 0.03 10^3/uL Sodium 138 (136-145) mEq/L Potassium 4.4 (3.5-5.0) mEq/L Chloride 102 (98-106) mEq/L Carbon Dioxide 27 (21-32) mmol/L BUN 18 (7-18) mg/dL Creatinine 1.1 H (0.6-1.0) mg/dL Est Cr Clr Drug Dosing 35.22 mL/min Estimated GFR (MDRD) 48 L (>=60) mL/min Glucose 94 (75-99) mg/dL Calcium 8.9 (8.4-10.1) mg/dL C-Reactive Protein 33.6 H (0.2-0.8) mg/dL ANDREA Results - Last 24 hrs: Microbiology 03/07/18 14:29 Aerobic Blood Culture - Final Blood - Venous - Lab Draw NO GROWTH AFTER 5 DAYS Anaerobic Blood Culture - Final 03/07/18 14:29 Aerobic Blood Culture - Final Blood - Venous NO GROWTH AFTER 5 DAYS Anaerobic Blood Culture - Final Med Orders - Current: Current Medications Acetaminophen (Tylenol) 650 mg PO Q4H PRN PRN Reason: Pain (Mild 1-3)/fever Last Admin: 03/11/18 20:28 Dose: 650 mg Hydrocodone Bitart/Acetaminophen ([place] 325-5 Mg) 2 tab PO Q4H PRN PRN Reason: Pain (moderate 4-6) Last Admin: 03/13/18 08:22 Dose: 2 tab Aspirin (Aspirin) 325 mg PO DAILY [facility] Last Admin: 03/13/18 08:22 Dose: 325 mg Ceftriaxone Sodium (Rocephin) 1 gm IVPUSH Q24H [facility] Last Admin: 03/12/18 11:23 Dose: 1 gm Enoxaparin Sodium (Lovenox) 30 mg SUBCUT DAILY@1600 [facility] Last Admin: 03/12/18 16:28 Dose: 30 mg Fluconazole (Diflucan) 100 mg PO DAILY [facility] Last Admin: 03/13/18 08:22 Dose: 100 mg Furosemide (Lasix) 40 mg PO DAILY [facility] Last Admin: 03/13/18 08:22 Dose: 40 mg Clindamycin Phosphate 300 mg/ (Premix) 50 mls @ 100 mls/hr IV 0400,1000,1600, 2200 [facility] Last Admin: 03/13/18 03:07 Dose: 100 mls/hr Vancomycin HCl 1.25 gm/ Sodium (Chloride) 250 mls @ 167 mls/hr IV Q24H [facility] Last Admin: 03/13/18 08:21 Dose: 167 mls/hr Latanoprost (Xalatan 0.005% Ophth Soln) 0 ml EYEBOTH QPM [facility] Last Admin: 03/12/18 19:36 Dose: 1 drop Lisinopril (Prinivil) 20 mg PO DAILY [facility] Last Admin: 03/13/18 08:22 Dose: 20 mg Multivitamins/Minerals (Prosight) 1 tab PO DAILY [facility] Last Admin: 03/13/18 08:22 Dose: 1 tab Nystatin (Nystatin Crm) 1 gm TOP BID [facility] Last Admin: 03/13/18 08:21 Dose: 1 applic Simvastatin (Zocor) 40 mg PO BEDTIME [facility] Last Admin: 03/12/18 19:35 Dose: 40 mg Vancomycin HCl (Pharmacy To Dose - Vancomycin) 1 dose .XX ASDIRECTED [facility] Discontinued Medications Furosemide (Lasix) 40 mg IVPUSH ONETIME ONE Stop: 03/13/18 09:34 Sodium Chloride (Normal Saline) 1,000 mls @ 30 mls/hr IV ASDIRECTED [facility] Last Admin: 03/09/18 21:42 Dose: 125 mls/hr - Exam General: Reports: Alert, Oriented, Cooperative Neck: Reports: Supple Lungs: Reports: Clear to Auscultation, Normal Respiratory Effort Cardiovascular: Reports: Regular Rate, Regular Rhythm, No Murmurs Back Exam: Reports: Normal Inspection, Full Range of Motion Extremities: Pedal Edema (LLE), Limited Range of Motion (LLE due to pain and swelling), Increased Warmth (LLE), Redness (LLE toes to the knee. Circumferential. ) Skin: Reports: Warm, Dry, Intact Neurological: Reports: No New Focal Deficit Psy/Mental Status: Reports: Alert, Normal Affect, Normal Mood
[2018-03-13] MEDS: cefTRIAXone 1 GM Vial IVPUSH SCH (10:10)
== END 2018-03-13 11:45 | DRG 603 ==
LOC: UNDOADMIN 12:39 → CC.MS 12:39
PROVIDERS: ADMIT Physician Assistant Medical; ATTEND Family Medicine
DX: L03.116 Cellulitis of left lower limb (principal); E86.0 Dehydration; I10 Essential (primary) hypertension; B37.2 Candidiasis of skin and nail; R19.7 Diarrhea, unspecified; M17.12 Unilateral primary osteoarthritis, left knee; E87.70 Fluid overload, unspecified; I95.9 Hypotension, unspecified; E78.00 Pure hypercholesterolemia, unspecified; M81.0 Age-related osteoporosis without current pathological fracture; Z88.0 Allergy status to penicillin; Z79.82 Long term (current) use of aspirin; Z79.899 Other long term (current) drug therapy; Z96.659 Presence of unspecified artificial knee joint
CPT/HCPCS: 36415; 51702; 71046; 73701-LT; 80048; 80053; 81001; 83605; 84443; 85025; 86140; 86617; 87040; 93971-LT; 97161-GP; A9270-GY; J0696; J1650; J1940; J3370; J7030; J7050; Q9967